=== PATIENT | male | born 1960 | race Caucasian/White ===

== ENCOUNTER 2016-12-30 11:39 | Day surgery (SDC) | payer OTHER ==
[~2016-12-30] VITALS: Ht 172.7 cm; Wt 86.5 kg
[2016-12-30] VITALS (9 sets, daily range): BP systolic 126–153; BP diastolic 70–96; PULSE 62–74; RESP 14–18; Ht 172.7 cm; Wt 86.5 kg
[2016-12-30 12:30] LABS: INR 0.99; PROTIME 13.1 Sec (12.2-14.2)
[2016-12-30 12:31] LABS: PARTIAL THROMBOPLASTIN TIME 29.1 Sec (25.0-35.0)
[2016-12-30] MEDS ORDERED: CEFAZOLIN 2 GM/50 ML (PMX) 50 ML IVPB SCH (13:30)
[2016-12-30] MEDS ORDERED: SOD CHLORIDE 0.9% 1,000 ML IV SCH (13:30)
[2016-12-30] MEDS ORDERED: BUPIVACAINE 0.25% (MPF) 30 ML INJ ONE (14:28)
[2016-12-30] MEDS ORDERED: MIDAZOLAM 1 MG/ML 2 ML INJ ONE (14:29)
[2016-12-30] MEDS ORDERED: LIDOCAINE 2% (SDV) 5 ML INJ ONE (14:29)
[2016-12-30] MEDS ORDERED: PROPOFOL 20 ML ONE (14:29)
[2016-12-30] MEDS ORDERED: DIPHENHYDRAMINE 50 MG INJ IV PRN (14:30)
[2016-12-30] MEDS ORDERED: MEPERIDINE 25 MG INJ IV PRN (14:30)
[2016-12-30] MEDS ORDERED: FENTAnyl 50 MCG/ML VIAL IV PRN ×4 (14:30→15:30)
[2016-12-30] MEDS ORDERED: HYDROmorphONE (0.2 MG/ML) 10ML SYG IV PRN ×2 (14:30)
[2016-12-30] MEDS ORDERED: CEFAZOLIN 1 GM INJ ONE (14:39)
[2016-12-30] MEDS ORDERED: ONDANSETRON 4 MG INJ ONE (14:50)
[2016-12-30] MEDS ORDERED: DEXAMETHASONE 4 MG/ML 1 ML INJ ONE (14:50)
[2016-12-30] MEDS ORDERED: KETOROLAC 30 MG INJ ONE (15:09)
--- NOTE | 2016-12-30 15:15 | SIPON ---
Date/Time of Note Date/Time of Note DATE: 12/30/16 TIME: 15:14 Operative Report Preoperative Diagnosis posterior scalp mass Postoperative Diagnosis same Operation/Procedure Performed 1. excision of posterior scalp mass 7 cm incision and 5 cm mass 2. localized adjacent issue transfer with the use of skin flaps 3. therapeutic injection of subcutaneous marcaine cpt code 20492 Surgeon see signature line programs assistant none Anesthesia: general Estimated blood loss: 0 - 10 ml's Transfusion Required none Specimen posterior scalp mass Grafts/Implants none Complications none Nathanael MCNAMARA Dec 30, 2016 15:15
[2016-12-30] MEDS ORDERED: HYDROCODONE/APAP (5/325) TAB PO ONE (15:30)
--- NOTE | 2016-12-30 16:18 | OPR ---
DATE OF OPERATION: 12/30/2016 INDICATION: This is a 56-year-old male with a large posterior scalp mass. He is taken to the OR for a scalp mass excision. Risks, alternatives, benefits of procedure were discussed with the patient. Patient expressed understanding and consents to the operation. 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 PREOPERATIVE DIAGNOSIS: Posterior scalp mass. POSTOPERATIVE DIAGNOSIS: Posterior scalp mass. OPERATION PERFORMED: 1. Excision of posterior scalp tumor with 7 cm size incision and 5 cm in size tumor. 2. Localized adjacent tissue transfer with use of skin flaps. 3. Therapeutic subcutaneous Marcaine injection. SURGEON: Joni Savage, Rupinder SPECIMENS: Posterior scalp mass. COMPLICATIONS: None. ANESTHESIA: General. ESTIMATED BLOOD LOSS: 15 mL. OPERATIVE PROCEDURE: Patient was taken to the OR, and prepped and draped in usual sterile fashion. Surgical time-out was performed. IV antibiotics were given. A transverse incision was made with a 15 blade. Dissection cautery was carried down to the mass and the mass was circumferentially excised. There was good hemostasis of the surgical site. Due to the large tissue defect, a localized adjacent tissue transfer with use of skin flaps was performed. Multilayered closure with interrupted 3-0 Vicryl and running 4-0 Monocryl. Therapeutic subcutaneous Marcaine was injected throughout the incision site. Dictated By: Rupinder Newman /deanna/diego Raymundo#: [id number]/Document#: [id number]
== END 2016-12-30 17:30 | disposition home or self-care (01) ==
LOC: SDS 11:39
PROVIDERS: ATTEND Surgery
DX: D17.0 Benign lipomatous neoplasm of skin and subcutaneous tissue of head, face and neck (principal)
CPT/HCPCS: 14020; 85610; 85730; 88307; J0690; J1100; J1885; J2250; J2405; Z7512; Z7610

== ENCOUNTER 2016-12-31 11:23 | Emergency (ER) | payer OTHER ==
[~2016-12-31] VITALS: Wt 78.0 kg
--- NOTE | 2016-12-31 11:50 | ERD ---
ER Documentation Chief Complaint Date/Time DATE: 12/31/16 TIME: 11:47 Chief Complaint POST OP WOUND HPI 56-year-old male status post excision of the scalp tumor surgery comes in with bleeding from the incision site that he noted today. Patient states that he looked down to read his Bible and he fell of a small gush of blood come out. He has not had any headaches, dizziness, loss of consciousness, fevers or chills. ROS All systems reviewed and are negative except as per history of present illness. Medications Home Meds No Active Prescriptions or Reported Meds Allergies Allergies: Coded Allergies: No Known Allergy (Unverified , 12/30/16) PMhx/Soc History of Surgery: Yes (HERNIA X 2) Anesthesia Reaction: No Hx Neurological Disorder: No Hx Respiratory Disorders: No Hx Cardiac Disorders: No Hx Psychiatric Problems: No Hx Miscellaneous Medical Probl: No Hx Alcohol Use: No Hx Substance Use: No Hx Tobacco Use: No Physical Exam Vitals Vital Signs Date Time Temp Pulse Resp B/P Pulse Ox O2 Delivery O2 Flow Rate FiO2 12/31/16 11:27 98.0 78 18 136/71 99 Physical Exam General: Well-developed, well-nourished. The patient appears in no acute distress. HEENT: Left parietal scalp has a 6 cm transverse incision. The incision site is intact. There is no warmth, erythema. It is clean and dry. There is a hematoma that is appreciated when palpated. No scleral icterus. Neck: Supple. Nontender. Lungs: Clear to auscultation. Normal air movement. Heart: Regular rate and rhythm. S1 and S2 are normal. No murmurs, gallops, or rubs. Abdomen: Soft, nontender, nondistended. Bowel sounds are normoactive. Extremities: No clubbing or cyanosis. Normal pulses. Moving extremities x 4. No weakness. Neurologic: Alert and oriented 3. No focal deficits. Skin: Normal turgor. No rash or lesions. Procedures/MDM 56-year-old male comes in with an incision, and hematoma status post scalp tumor removal yesterday. Patient states that he looks down to read, and this likely cause a little bit of tension to the region allowing the hematoma to bleed. There is no active bleeding at this time, signs of infection, dehiscence. Departure Diagnosis: Primary Impression: Encounter for postoperative wound check Additional Impression: Hematoma Condition: Good Patient Instructions: Hematoma, Post Op Wound Check, Bleeding Referrals: Nathanael MCNAMARA Additional Instructions: Llame al doctor MAANA y attila germán CHASITY PARA DENTRO DE 2-3 MICHAEL.Dgale a la secretaria que nosotros le instruimos hacer esta chasity.Avise o llame si green condicin se empeora antes de la chasity. Regresa aqui si peor o no mejor. WILL GRIFFITH PA-C Dec 31, 2016 11:50
== END 2016-12-31 12:36 | disposition home or self-care (01) ==
LOC: FTE 11:23
DX: S00.03XD Contusion of scalp, subsequent encounter (principal); X58.XXXD Exposure to other specified factors, subsequent encounter; Z48.01 Encounter for change or removal of surgical wound dressing
CPT/HCPCS: 99281